=== PATIENT | female | born 1995 | race Caucasian/White ===

== ENCOUNTER 2016-09-15 09:01 | Emergency (ER) | payer MEDICAID, SELFPAY ==
[~2016-09-15] VITALS: Ht 170.2 cm; Wt 68.0 kg
[2016-09-15 09:02] VITALS: BP 130/80
[2016-09-15] MEDS ORDERED: DESO1TAB5 (09:12)
== END 2016-09-15 10:07 | disposition home or self-care (01) ==
LOC: M ED 09:38
DX: J02.9 Acute pharyngitis, unspecified (principal)

== ENCOUNTER → 2016-09-17 | Outpatient (REF) | payer SELFPAY ==
[~2016-09-17] MED LIST: DESO1TAB5
== END ==
LOC: M SFHCWAGY 15:51
PROVIDERS: ATTEND Nurse Practitioner Women's Health
DX: Z12.4 Encounter for screening for malignant neoplasm of cervix (principal)

== ENCOUNTER 2018-01-11 15:25 | Emergency (ER) | payer OTHER, MEDICAID, SELFPAY ==
[2018-01-11] MEDS: KETOROLAC 60 MG/2 ML VIAL (J1885) IM (16:49)
== END 2018-01-11 17:43 | disposition home or self-care (01) ==
LOC: M ED 15:25
DX: M62.838 Other muscle spasm (principal)
CPT/HCPCS: J1885

== ENCOUNTER 2018-11-18 15:27 | Emergency (ER) | payer MEDICAID, OTHER, SELFPAY ==
[~2018-11-18] VITALS: Ht 167.6 cm; Wt 85.0 kg
[2018-11-18 15:27] VITALS: BP 149/95
[~2018-11-18 15:27] MED LIST changes: +DICL1GEL3 TOP; +METH1TAB40 PO; +NAPR-837 PO
[2018-11-18] MEDS ORDERED: AZUR1TAB PO (15:34)
[2018-11-18 18:01] LABS: HEMATOCRIT 41.9 % (36.0-47.0); MEAN CORPUSCULAR HEMOGLOBIN 29.4 pg (27.0-33.0); MEAN CORPUSCULAR HGB CONC 33.4 g/dl (32.0-36.5); MEAN CORPUSCULAR VOLUME 87.8 fl (80.0-96.0); PLATELET COUNT, AUTOMATED 361 10^3/uL (150-450); RED BLOOD COUNT 4.77 10^6/uL (4.00-5.40); WHITE BLOOD COUNT 8.4 10^3/uL (4.0-10.0)
[2018-11-18 18:16] LABS: AMPHETAMINES LEVEL URINE NEGATIVE (NEGATIVE); BARBITURATES URINE NEGATIVE (NEGATIVE); BENZODIAZEPINES URINE NEGATIVE (NEGATIVE); CANNABINOIDS URINE NEGATIVE (NEGATIVE); COCAINE METABOLITE URINE NEGATIVE (NEGATIVE); METHADONE URINE NEGATIVE (NEGATIVE); OPIATES URINE NEGATIVE (NEGATIVE); PHENCYCLIDINE URINE NEGATIVE (NEGATIVE)
[2018-11-18 18:26] LABS: HCG, SERUM QUALITATIVE NEGATIVE (NEGATIVE)
[2018-11-18 18:36] LABS: ALBUMIN 3.5 GM/DL (3.2-5.2); ALT/SGPT 23 U/L (12-78); BILIRUBIN,DIRECT 0.1 MG/DL (0.0-0.2); BILIRUBIN,TOTAL 0.2 MG/DL (0.2-1.0); BLOOD UREA NITROGEN 9 MG/DL (7-18); CARBON DIOXIDE LEVEL 28 MEQ/L (21-32); CHLORIDE LEVEL 107 MEQ/L (98-107); CREATININE FOR GFR 0.78 MG/DL (0.55-1.30); ETHYL ALCOHOL (ETHANOL) 0.003 % (0.000-0.010); GLOMERULAR FILTRATION RATE > 60.0 (>60); GLUCOSE, FASTING 80 MG/DL (70-100); POTASSIUM SERUM 3.8 MEQ/L (3.5-5.1); SALICYLATE LEVEL < 1.7 MG/DL (5.0-30.0); SODIUM LEVEL 140 MEQ/L (136-145); THYROID STIMULATING HORMONE 0.592 uIU/ML (0.358-3.740); TOTAL PROTEIN 7.7 GM/DL (6.4-8.2)
[2018-11-18 18:37] LABS: ACETAMINOPHEN LEVEL < 2.0 UG/ML (10.0-30.0)
[2018-11-18] MEDS ORDERED: HYDR-3363 PO (19:34)
--- NOTE | 2018-11-19 22:02 | ECGEPIP ---
[facility] - ED Test Date: 2018-11-18 Pat Name: KLAUS HIDALGO Department: Room: - Gender: Female Pole Tester: HERMES : 1995 Requested By: MARCO MILLER Order Number: [id number] Reading MD: Ger Avendano Measurements Intervals [place] Rate: 95 P: 58 LA: 135 QRS: 44 QRSD: 87 T: 10 QT: 364 QTc: 459 Interpretive Statements SINUS RHYTHM INCOMPLETE RIGHT BUNDLE BRANCH BLOCK MODERATE ST DEPRESSION NO PRIORS FOR COMPARISON Electronically Signed on 11-19-2018 22:01:58 EDT by Ger Avendano
== END 2018-11-18 20:12 | disposition home or self-care (01) ==
LOC: M ED 15:27
DX: F41.1 Generalized anxiety disorder (principal); F33.9 Major depressive disorder, recurrent, unspecified; Z79.3 Long term (current) use of hormonal contraceptives
CPT/HCPCS: 36415; 80048; 80076; 80307; 84443; 84703; 85027; 93005; 99284; G0480

== ENCOUNTER → 2020-03-24 | Outpatient (CLI) | payer MEDICAID ==
[~2020-03-24] MED LIST changes: +AZUR1TAB PO; +CELE40TA PO; +HYDR-3363 PO
== END ==
LOC: M LABSMTC 10:07
PROVIDERS: ATTEND Anesthesiology
DX: Z01.812 Encounter for preprocedural laboratory examination (principal); Z20.828 Contact with and (suspected) exposure to other viral communicable diseases

== ENCOUNTER 2020-03-29 10:05 | Day surgery (SDC) | payer OTHER ==
[~2020-03-29] VITALS: Ht 167.6 cm; Wt 91.2 kg
[~2020-03-29 10:05] MED LIST changes: +LIDOCAINE 1% MDV 20ML VIAL SQ PRN; +LR 1,000 ML IV ONE; +dexameTHASONE 4 MG/ML 1ML VIAL (J1100 PER 1MG) IV ONE
[2020-03-29] MEDS ORDERED: SUGAMMADEX SODIUM 500 MG/5 ML VIAL (BRIDION) As Ordered ONE (11:16)
[2020-03-29] MEDS ORDERED: ONDANSETRON 4MG/2ML VIAL As Ordered ONE (11:16)
[2020-03-29] MEDS ORDERED: LIDOCAINE 2% 100MG/5ML SDV (FOR ANES.) As Ordered ONE (11:16)
[2020-03-29] MEDS ORDERED: dexameTHASONE 4 MG/ML 1ML VIAL (J1100 PER 1MG) As Ordered ONE (11:16)
[2020-03-29] MEDS ORDERED: propofoL 200 MG/20 ML VIAL As Ordered ONE (11:16)
[2020-03-29] MEDS ORDERED: ACETAMINOPHEN 1000MG 100ML IV BTL (OFIRMEV) (J0131 PER 10MG) As Ordered ONE (11:16)
[2020-03-29] MEDS ORDERED: fentaNYL 100 MCG/2 ML INJECTION (J3010) As Ordered ONE (11:16)
[2020-03-29] MEDS ORDERED: ROCURONIUM BROMIDE 50 MG/5 ML VIAL As Ordered ONE (11:16)
[2020-03-29] MEDS ORDERED: MIDAZOLAM INJ 2MG/2ML VIAL (J2250 PER 1MG) As Ordered ONE (11:17)
[2020-03-29] MEDS ORDERED: ONDANSETRON 4MG/2ML VIAL IV PRN (15:30)
[2020-03-29] MEDS ORDERED: oxyCODONE 5MG TAB PO PRN (15:30)
[2020-03-29] MEDS ORDERED: fentaNYL 100 MCG/2 ML INJECTION (J3010) IV PRN (15:30)
[2020-03-29] MEDS ORDERED: LR 1,000 ML IV SCH ×2 (15:30)
--- NOTE | 2020-03-29 15:55 | RO ---
OPERATIVE NOTE DATE OF OPERATION: 03/29/2020 SURGEON: Marvel Mitchell MD PREOPERATIVE DIAGNOSIS: Chronic tonsillitis. POSTOPERATIVE DIAGNOSIS: Chronic tonsillitis. PROCEDURE: Tonsillectomy. CLINICAL PREAMBLE: This 24-year-old woman presented to the office with a history of chronic tonsillitis. Physical examination revealed cryptic tonsils. Management options including tonsillectomy have been discussed. The patient understood and consented to the procedure. DESCRIPTION OF PROCEDURE: Patient was identified in preoperative holding and brought to the operating room in stable condition. In the supine position on the operating room table, patient received general anesthesia followed by orotracheal intubation without incident. Patient was prepped and draped in the usual sterile fashion for the procedure. The Javier-Dayne mouth gag was inserted and suspended. The right tonsil was medialized using curved Allis forceps. A mucosal incision was made over the superior pole of the right tonsil using the Coblator wand set at 7 for Coblation. The tonsillar capsule was identified, and dissection was carried out along this plane to excise the right tonsil. The left tonsil was then similarly dissected out. At the end of the procedure, both tonsil beds were free of bleeding. Estimated blood loss was less than 10 mL. No complication was encountered. Sponge and instrument counts were correct at the end of the procedure. General anesthesia was reversed, and the patient was extubated and brought to the recovery room in stable condition.
[2020-03-29 16:50] VITALS: BP 118/73
== END 2020-03-29 16:50 | disposition home or self-care (01) ==
LOC: M SDC 10:05
PROVIDERS: ATTEND Otolaryngology
DX: J35.01 Chronic tonsillitis (principal); G43.909 Migraine, unspecified, not intractable, without status migrainosus; Z79.899 Other long term (current) drug therapy; F41.9 Anxiety disorder, unspecified; F32.9 Major depressive disorder, single episode, unspecified
CPT/HCPCS: 42826; 88302; J0131; J1100; J2250; J2405; J3010

== ENCOUNTER → 2021-11-20 | Outpatient (REF) | payer OTHER ==
[~2021-11-20] MED LIST changes: -LIDOCAINE 1% MDV 20ML VIAL SQ PRN; -LR 1,000 ML IV ONE; +METH-1164 PO; -METH1TAB40 PO; -dexameTHASONE 4 MG/ML 1ML VIAL (J1100 PER 1MG) IV ONE
== END ==
LOC: M PLALAB 13:17
PROVIDERS: ATTEND Nurse Practitioner Family
DX: Z12.4 Encounter for screening for malignant neoplasm of cervix (principal)

== ENCOUNTER → 2021-12-19 | Outpatient (CLI) | payer OTHER | LOC: M SOG 08:05 | PROVIDERS: ATTEND Orthopaedic Surgery | DX: M54.50 Low back pain, unspecified (principal); M25.551 Pain in right hip ==

== ENCOUNTER → 2023-02-19 | Outpatient (REF) | payer OTHER ==
[~2023-02-19] MED LIST changes: +DICL100G10 TOP; -DICL1GEL3 TOP
== END ==
LOC: M SFHCWAGY 13:12
PROVIDERS: ATTEND Nurse Practitioner Family
DX: Z12.4 Encounter for screening for malignant neoplasm of cervix (principal)